=== PATIENT | female | born 1960 | race Caucasian/White ===

== ENCOUNTER 2017-12-09 18:10 | Emergency (ER) | payer OTHER ==
[~2017-12-09] VITALS: Ht 149.9 cm; Wt 70.3 kg
--- NOTE | ~2017-12-09 | EKG ---
[place] [address] [facility] [place] [address] ELECTROCARDIOGRAM REPORT Name: ROXY LOPEZREFUGIO Room #: [facility] [place]#: [id number] Admission: 12/09/17 Attend Phys: Discharge: 12/09/17 Date of : 62 Report #: [id number] THIS REPORT FOR: //name// [facility] ED Test Date: 2017-12-09 Test Time: 18:24:57 Pat Name: REFUGIO LOPEZ Department: Room: Gender: F Commercial Accountant: Vanesa TEJEDA : 1960 Requested By: Elias Puga Order Number: [id number] MD: Alex Mcgovern Measurements Intervals [place] Rate: 109 P: 58 NV: 156 QRS: 24 QRSD: 89 T: 33 QT: 326 QTc: 440 Interpretive Statements Sinus tachycardia Nonspecific ST segment abnormality RSR' in V1 or V2, probably normal variant No previous ECG available for comparison Electronically Signed On 12-10-2017 14:26:39 CDT by Alex Mcgovern [email or web address] <ELECTRONICALLY SIGNED> By: Alex Mcgovenr MD, [facility] 12/10/17 1426 1824 23 Alex Mcgovern MD, FACC /EPI
[2017-12-09] MEDS ORDERED: LISINOPRIL10 MG PO (18:48)
[2017-12-09] MEDS ORDERED: GABAPENTIN 100100 MG PO (18:48)
[2017-12-09] MEDS ORDERED: DICLOFENAC SODI25 MG PO (18:49)
[2017-12-09] MEDS ORDERED: SIMVASTATIN40 MG PO (18:49)
[2017-12-09 18:51] LABS: BASOPHILS 0.7 % (0.0-2.0); EOSINOPHILS 1.9 % (0.0-3.0); HEMATOCRIT 39.9 % (37.0-47.0); HEMOGLOBIN 13.8 gm/dL (12.0-15.0); LYMPHOCYTES 48.1 % (24.0-44.0); MCH 30.5 pg (26.0-34.0); MCHC 34.5 g/dL (28.0-37.0); MCV 88.5 fL (80.0-100.0); MONOCYTES 7.4 % (1.0-8.0); PLATELET COUNT 289 thou/uL (150-400); POLYS 41.9 % (36.0-66.0); RBC 4.51 mil/uL (4.20-5.00); RDW 13.4 % (10.5-14.5); WBC 9.6 thou/uL (4.0-11.0)
[2017-12-09] MEDS ORDERED: LIORESAL 10 MG10 MG PO (18:52)
[2017-12-09 18:56] LABS: ANION GAP 10 mmol/L (7-16); BUN 18 mg/dL (7-18); CALCIUM 9.3 mg/dL (8.5-10.1); CHLORIDE 103 mmol/L (98-107); CO2 26 mmol/L (21-32); CREATININE 0.8 mg/dL (0.6-1.0); GLUCOSE 93 mg/dL (74-106); POTASSIUM 3.4 mmol/L (3.5-5.1); SODIUM 139 mmol/L (136-145)
[2017-12-09 19:05] LABS: ALBUMIN 4.1 g/dL (3.4-5.0); SGOT 29 U/L (15-37); SGPT 43 U/L (30-65); TOTAL BILIRUBIN 0.5 mg/dL (<0.1-1.0); TOTAL PROTEIN 7.9 g/dL (6.4-8.2); TROPONIN-I < 0.04 ng/mL (<0.06)
== END 2017-12-09 20:24 | disposition home or self-care (01) ==
LOC: ER 18:10
PROVIDERS: Emergency Medicine
DX: I10 Essential (primary) hypertension (principal)